=== PATIENT | female | born 1940 ===

== ENCOUNTER 2016-12-02 10:09 | Day surgery (SDC) | payer OTHER ==
[2016-12-02 10:50] VITALS: BMI 27.3
[2016-12-02] MEDS ORDERED: Propofol 10 mg/ml Inj (20 ML) ONE ×2 (12:22→12:37)
[2016-12-02 14:33] VITALS: TEMP 97.5
[2016-12-02 14:41] VITALS: BP 94/58; PULSE 65; RESP 14; O2SAT 98
== END 2016-12-02 14:30 | disposition home or self-care (01) ==
LOC: C.ENDO 10:09
PROVIDERS: ATTEND Internal Medicine Gastroenterology
DX: R10.13 Epigastric pain (principal); D12.2 Benign neoplasm of ascending colon; D12.3 Benign neoplasm of transverse colon; D12.4 Benign neoplasm of descending colon; K31.7 Polyp of stomach and duodenum; B96.81 Helicobacter pylori [H. pylori] as the cause of diseases classified elsewhere; K22.70 Barrett's esophagus without dysplasia; K57.30 Diverticulosis of large intestine without perforation or abscess without bleeding; K64.8 Other hemorrhoids; K29.50 Unspecified chronic gastritis without bleeding; Z86.010 Personal history of colon polyps